=== PATIENT | male | born 1995 | race Caucasian/White ===

== ENCOUNTER 2023-01-23 14:05 | Emergency (ER) | payer MEDICAID ==
[~2023-01-23] VITALS: Ht 175.3 cm; Wt 81.6 kg
[2023-01-23 14:16] VITALS: BP_SYST 97; PULSE 98; RESP 20; TEMP 98.7; O2SAT 98
[2023-01-23 15:02] LABS: BASOPHILS % (AUTO) 0.3 % (0.0-2.0); HEMATOCRIT 43.5 % (36-54); HEMOGLOBIN 14.3 g/dL (14.0-18.0); LYMPHOCYTES # (AUTO) 1.3 K/uL (1.0-5.5); LYMPHOCYTES % (AUTO) 8.6 % (20.5-51.5); MEAN CORPUSCULAR HEMOGLOBIN 31 pg (27-31); MEAN CORPUSCULAR HGB CONC 33 % (32-36); MEAN CORPUSCULAR VOLUME 93 fL (79.0-98.0); MONOCYTES # (AUTO) 0.7 K/uL (0.0-1.0); MONOCYTES % (AUTO) 4.7 % (1.7-9.3); NEUTROPHILS # (AUTO) 12.9 K/uL (1.8-7.7); NEUTROPHILS % (AUTO) 86.4 % (40.0-70.0); PLATELET COUNT (AUTO) 323 K/uL (130-430); RED BLOOD CELL COUNT(AUTO) 4.68 MIL/uL (4.2-6.2); RED CELL DISTRIBUTION WIDTH 14.1 % (9.0-15.0)
[2023-01-23 15:12] LABS: CALCIUM 9.3 mg/dL (8.4-11.0); CREATININE 1.4 mg/dL (0.55-1.30)
[2023-01-23 15:17] LABS: ALBUMIN 4.4 g/dL (3.4-4.8); TOTAL BILIRUBIN 0.4 mg/dL (0.0-1.0)
[2023-01-23 16:48] LABS: BARBITURATE, URINE NEGATIVE (NEG <=200); BENZODIAZEPINE, URINE NEGATIVE (NEG <=150); CANNABINOID, URINE POSITIVE (NEG <=50); COCAINE, URINE NEGATIVE (NEG <=150); METHAMPHETAMINES SCREEN,URINE NEGATIVE (NEG <=500); OPIATE, URINE NEGATIVE (NEG <=100); PHENCYCLIDINE SCREEN,URINE NEGATIVE (NEG <=25); UR TRICYCLIC ANTIDEPRESSANTS NEGATIVE (NEG <=300); URINE AMPHETAMINE NEGATIVE (NEG <=500); URINE METHADONE NEGATIVE (NEG <=200); URINE OXYCODONE SCREEN NEGATIVE (NEG <=100); URINE PROPOXYPHENE SCREEN NEGATIVE (NEG <=300)
[2023-01-23] MEDS ORDERED: NACL 0.9% 3,000 ML IV ONE (17:00)
[2023-01-23] MEDS ORDERED: LORA-259 PO (17:18)
[2023-01-23] MEDS ORDERED: ONDANSETRON HCL 4 MG/2 ML VIAL IVP ONE (17:45)
[2023-01-23 19:45] VITALS: BP_SYST 136; PULSE 80; RESP 18; TEMP 98; O2SAT 97
== END 2023-01-23 19:45 | disposition home or self-care (01) ==
LOC: SED 14:05
DX: R56.9 Unspecified convulsions (principal); F10.10 Alcohol abuse, uncomplicated; Z79.899 Other long term (current) drug therapy; Y90.6 Blood alcohol level of 120-199 mg/100 ml
CPT/HCPCS: 99285; 96374; 70450; 96361; 80307; 80053; 82009; 85025; 36415; 76376; 83605; G0482; J2405; J7030

== ENCOUNTER 2024-04-12 16:22 | Emergency (ER) | payer MEDICAID ==
[~2024-04-12] VITALS: Ht 172.7 cm; Wt 68.0 kg
[~2024-04-12 16:22] MED LIST: LORA-259 PO
[2024-04-12 16:24] VITALS: BP_SYST 125; PULSE 84; RESP 12; TEMP 98; O2SAT 100
[2024-04-12] MEDS ORDERED: LEVE500T9 PO (16:39)
[2024-04-12] MEDS: levETIRAcetam 500 MG TABLET PO ONE (16:41)
[2024-04-12 16:53] VITALS: BP_SYST 125; PULSE 84; RESP 12; TEMP 98; O2SAT 100
== END 2024-04-12 17:00 | disposition home or self-care (01) ==
LOC: SED 16:22
DX: R56.9 Unspecified convulsions (principal); Z76.0 Encounter for issue of repeat prescription; Z59.00 Homelessness unspecified; Z79.899 Other long term (current) drug therapy
CPT/HCPCS: 99283

== ENCOUNTER 2024-05-20 14:59 | Emergency (ER) | payer MEDICAID ==
[~2024-05-20] VITALS: Ht 172.7 cm; Wt 77.1 kg
[~2024-05-20 14:59] MED LIST changes: +LEVE500T9 PO
[2024-05-20 15:01] VITALS: BP_SYST 131; PULSE 85; RESP 18; TEMP 97.8; O2SAT 98
[2024-05-20] MEDS: levETIRAcetam 500 MG TABLET PO ONE (16:36)
[2024-05-20] MEDS ORDERED: LEVE500T9 PO (17:54)
[2024-05-20] MEDS ORDERED: OLAN10TA71 PO (17:54)
[2024-05-20 18:19] VITALS: BP_SYST 137; PULSE 81; RESP 19; O2SAT 98
== END 2024-05-20 18:16 | disposition home or self-care (01) ==
LOC: SED 14:59
DX: R56.9 Unspecified convulsions (principal); Z76.0 Encounter for issue of repeat prescription; Z79.899 Other long term (current) drug therapy
CPT/HCPCS: 99281; 99283